=== PATIENT | female | born 1990 | race Caucasian/White ===

== ENCOUNTER 2017-04-01 19:05 | Emergency (ER) | payer BC, MEDICAID ==
[~2017-04-01] VITALS: Ht 162.6 cm; Wt 47.0 kg
[~2017-04-01 19:05] MED LIST: ALBU8.5H5 INH; ALBUTEROL; ARIP10TA33 PO; FLUC100T PO; FLUT1DIS INH; IBUP-1222 PO; ONDA4TAB7 PO; PREN-1 PO
[2017-04-01 19:53] LABS: BASOPHILS # (AUTO) 0.02 x10^3/uL (0-0.1); BASOPHILS % (AUTO) 0 % (0-1); EOSINOPHILS # (AUTO) 0.02 x10^3/uL (0-0.4); EOSINOPHILS % (AUTO) 1 % (1-7); LYMPHOCYTES # (AUTO) 2.11 x10^3/uL (1-3.4); LYMPHOCYTES % (AUTO) 44 % (22-44); MD NO; MEAN CORPUSCULAR HEMOGLOBIN 29.5 pg (27.0-34.8); MEAN CORPUSCULAR HGB CONC 33.5 g/dL (32.4-35.8); MEAN CORPUSCULAR VOLUME 88.2 fL (80-100); MEAN PLATELET VOLUME 8.4 fL (7.4-10.4); MONOCYTES # (AUTO) 0.41 x10^3/uL (0.2-0.8); MONOCYTES % (AUTO) 8 % (2-9); NEUTROPHILS # (AUTO) 2.24 x10^3/uL (1.8-6.8); NEUTROPHILS % (AUTO) 47 % (42-75); PLATELET COUNT 239 x10^3/uL (130-400); RED BLOOD COUNT 4.86 x10^6/uL (3.82-5.3)
[2017-04-01] MEDS ORDERED: SODIUM CHLORIDE 0.9% 1,000ML IVBOLUS ONE ×2 (20:00→21:00)
[2017-04-01] MEDS ORDERED: ONDANSETRON 2MG/ML, 2ML IVPush ONE (20:00)
[2017-04-01] MEDS ORDERED: SODIUM CHLORIDE FLUSH 10ML SYR IVF ONE ×2 (20:00→21:00)
[2017-04-01 20:06] LABS: ANION GAP 5 mmol/L (5-15); CALCIUM 8.9 mg/dL (8.5-10.1); CHLORIDE 107 mmol/L (98-107)
[2017-04-01 20:13] LABS: ALANINE AMINOTRANSFERASE 21 U/L (12-78); ALKALINE PHOSPHATASE 67 U/L (45-117); BILIRUBIN,TOTAL 0.6 mg/dL (0.2-1.0); CREATININE 0.73 mg/dL (0.55-1.02); TOTAL PROTEIN 9.1 g/dL (6.4-8.2)
[2017-04-01 20:26] LABS: MICROSCOPIC INDICATED
[2017-04-01 20:41] LABS: CULTURE INDICATED? YES
[2017-04-01] MEDS ORDERED: METOCLOPRAMIDE 5 MG/ML, 2ML IVPush ONE (21:00)
[2017-04-01] MEDS ORDERED: KETOROLAC 30 MG/1 ML IVPush ONE (21:00)
[2017-04-01] MEDS ORDERED: ONDANSETRON 2MG/ML, 2ML ONE (21:01)
[2017-04-01] MEDS ORDERED: KETOROLAC 30 MG/1 ML ONE (21:01)
[2017-04-01] MEDS ORDERED: METOCLOPRAMIDE 5 MG/ML, 2ML ONE (21:01)
[2017-04-01 21:54] VITALS: BP 108/62
== END 2017-04-01 21:56 | disposition home or self-care (01) ==
LOC: ED 21:25
DX: R10.84 Generalized abdominal pain (principal); G43.909 Migraine, unspecified, not intractable, without status migrainosus; F31.9 Bipolar disorder, unspecified; G80.9 Cerebral palsy, unspecified; Z91.040 Latex allergy status; Z88.8 Allergy status to other drugs, medicaments and biological substances
CPT/HCPCS: 36415; 80053; 81001; 83690; 84703; 85025; 87086; 96361; 96374; 96375; 99284; J1885; J2405; J2765; J7030

== ENCOUNTER 2018-04-20 11:20 | Emergency (ER) | payer MEDICAID ==
[~2018-04-20] VITALS: Ht 152.4 cm; Wt 40.0 kg
[2018-04-20 11:59] VITALS: BP 101/74
[2018-04-20 12:35] LABS: BASOPHILS # (AUTO) 0.03 x10^3/uL (0-0.1); BASOPHILS % (AUTO) 0 % (0-1); EOSINOPHILS # (AUTO) 0.01 x10^3/uL (0-0.4); EOSINOPHILS % (AUTO) 0 % (1-7); LYMPHOCYTES # (AUTO) 0.93 x10^3/uL (1-3.4); LYMPHOCYTES % (AUTO) 15 % (22-44); MD NO; MEAN CORPUSCULAR HEMOGLOBIN 30.8 pg (27.0-34.8); MEAN CORPUSCULAR HGB CONC 33.9 g/dL (32.4-35.8); MEAN CORPUSCULAR VOLUME 90.8 fL (80-100); MEAN PLATELET VOLUME 8.3 fL (7.4-10.4); MONOCYTES # (AUTO) 0.74 x10^3/uL (0.2-0.8); MONOCYTES % (AUTO) 12 % (2-9); NEUTROPHILS # (AUTO) 4.52 x10^3/uL (1.8-6.8); NEUTROPHILS % (AUTO) 73 % (42-75); PLATELET COUNT 199 x10^3/uL (130-400); RED BLOOD COUNT 4.97 x10^6/uL (3.82-5.3); RED CELL DISTRIBUTION WIDTH 14.2 % (9.6-15.2)
[2018-04-20 12:49] LABS: ANION GAP 6 mmol/L (5-15); CALCIUM 9.1 mg/dL (8.5-10.1); CHLORIDE 105 mmol/L (98-107); CREATININE 0.72 mg/dL (0.55-1.02)
--- NOTE | 2018-04-20 15:45 | NUR ---
CALLED FOR ROOM, NO ANSWER.
[2018-04-20] MEDS ORDERED: DEXAMETHASONE 4 MG/ML, 1ML ONE (16:08)
--- NOTE | 2018-04-20 16:18 | NUR ---
NA X 2
--- NOTE | 2018-04-20 16:47 | NUR ---
3RD CALL FOR ROOM, NO ANSWER.
== END 2018-04-20 16:48 | disposition left against medical advice (07) ==
LOC: ED 16:42
DX: J02.0 Streptococcal pharyngitis (principal); R11.10 Vomiting, unspecified; R30.0 Dysuria
CPT/HCPCS: 36415; 71046; 80048; 82040; 84703; 85025; 99284

== ENCOUNTER 2019-06-06 12:24 | Emergency (ER) | payer MEDICAID, OTHER ==
[~2019-06-06] VITALS: Ht 167.6 cm; Wt 65.0 kg
--- NOTE | 2019-06-06 12:49 | NUR ---
PT WITH C/O RL/LLQ ABD PAIN INTERMITTANT X1 WEEK. STATES HAS BEEN WORSENING IN INTENSITY. PT DENIES N/V/D/URINARY SYMPTOMS. PT IS 16 WKS PER HER REPORT. 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
[2019-06-06 13:01] LABS: BASOPHILS # (AUTO) 0.03 x10^3/uL (0-0.1); BASOPHILS % (AUTO) 0 % (0-1); EOSINOPHILS # (AUTO) 0.02 x10^3/uL (0-0.4); EOSINOPHILS % (AUTO) 0 % (1-7); LYMPHOCYTES # (AUTO) 1.21 x10^3/uL (1-3.4); LYMPHOCYTES % (AUTO) 16 % (22-44); MD NO; MEAN CORPUSCULAR HEMOGLOBIN 32.1 pg (27.0-34.8); MEAN CORPUSCULAR HGB CONC 34.7 g/dL (32.4-35.8); MEAN CORPUSCULAR VOLUME 92.6 fL (80-100); MEAN PLATELET VOLUME 8.2 fL (7.4-10.4); MONOCYTES # (AUTO) 0.52 x10^3/uL (0.2-0.8); MONOCYTES % (AUTO) 7 % (2-9); NEUTROPHILS # (AUTO) 5.69 x10^3/uL (1.8-6.8); NEUTROPHILS % (AUTO) 76 % (42-75); PLATELET COUNT 174 x10^3/uL (130-400); RED BLOOD COUNT 3.72 x10^6/uL (3.82-5.3)
[2019-06-06 13:07] LABS: MICROSCOPIC INDICATED
[2019-06-06 13:07] LABS: ALBUMIN 2.9 g/dL (3.4-5.0); CALCIUM 8.5 mg/dL (8.5-10.1); CREATININE 0.46 mg/dL (0.55-1.02)
[2019-06-06 13:13] LABS: ANION GAP 5 mmol/L (5-15); CHLORIDE 106 mmol/L (98-107)
[2019-06-06 13:28] LABS: CULTURE INDICATED? YES
--- NOTE | 2019-06-06 13:35 | NUR ---
PT WITH LOW ALTHOUGH STABLE BP, SBP 85-92 MAP 65-75. PT ASYMPTOMATIC TO THIS, DISCUSSED WITH GAYE MOONEY TO GO TO US, PT WILL RECIEVE 1LNS BOLUS UPON RETURN
--- NOTE | 2019-06-06 13:36 | NUR ---
PT TO US AT THIS TIME
[2019-06-06] MEDS ORDERED: SODIUM CHLORIDE 0.9% 1,000ML IVBOLUS ONE (14:00)
--- NOTE | 2019-06-06 14:06 | NUR ---
BREAK RN: PT BACK FROM US. HYPOTENSIVE W/ MAP OF 67, OTHER VS WDL. IVF STARTED PER EMAR. PT RESTING ON GURNEY W/ CALL LIGHT IN REACH, SIDE RAILS UPX2. AWAITING US RESULTS.
[2019-06-06 15:01] VITALS: BP 101/59
--- NOTE | 2019-06-06 15:02 | NUR ---
Patient given discharge instructions and they have confirmed that they understand the instructions. Patient ambulatory with steady gait.
== END 2019-06-06 15:03 | disposition home or self-care (01) ==
LOC: ED 13:24
DX: O26.892 Other specified pregnancy related conditions, second trimester (principal); R10.32 Left lower quadrant pain; R10.31 Right lower quadrant pain; Z3A.16 16 weeks gestation of pregnancy
CPT/HCPCS: 36415; 76801; 80048; 81001; 82040; 85025; 87086; 99284; J7030